=== PATIENT | female | born 1960 | race Two or more races ===

== ENCOUNTER 2023-03-26 08:50 | Emergency (ER) | payer MEDICAID, OTHER ==
[~2023-03-26] VITALS: Ht 167.6 cm; Wt 104.5 kg
[2023-03-26] MEDS ORDERED: LIDOCAINE 1% HCL (LOCAL ANESTH.) INJ 20ML MDV ID ONE (09:15)
[2023-03-26 09:28] VITALS: BP 160/85; PULSE 82; RESP 16; TEMP 97.9; O2SAT 99
[2023-03-26] MEDS ORDERED: cefTRIAXone SOD 1,000 MG VL IM ONE (09:45)
[2023-03-26] MEDS ORDERED: NABU-72 PO (09:49)
[2023-03-26] MEDS ORDERED: CEPH500C PO (09:49)
[2023-03-26] MEDS ORDERED: BACDST PO (09:49)
== END 2023-03-26 10:13 | disposition home or self-care (01) ==
LOC: ER 08:50
DX: L03.116 Cellulitis of left lower limb (principal); L02.416 Cutaneous abscess of left lower limb; E11.9 Type 2 diabetes mellitus without complications; Z79.899 Other long term (current) drug therapy
CPT/HCPCS: 10060; 73590; 87205; 96372; 99283; J0696; J2001